=== PATIENT | female | born 1980 | race Caucasian/White ===

== ENCOUNTER 2017-09-13 05:23 | Inpatient (IN) ==
[2017-09-13] MEDS ORDERED: Famotidine 20 MG/2 ML VIAL IVP PRN (05:27)
[2017-09-13] MEDS ORDERED: Naloxone 0.4 MG/ML INJ IVP PRN (05:27)
[2017-09-13] MEDS ORDERED: Metoclopramide 10 MG/2 ML VIAL IVP PRN ×2 (05:27→10:59)
[2017-09-13] MEDS ORDERED: Ringers Solution, Lactated 1,000 ML IVC SCH (05:30)
[2017-09-13 05:58] LABS: Basophils % 0.4 %; Eosinophils # 0.1 K/mcL (0.0-0.6); Eosinophils % 1.2 %; Hematocrit 36.4 % (35.3-44.9); Hemoglobin 12.5 g/dL (11.5-15.4); Immature Granulocytes % 1.3 % (0-4); Lymphocytes # 1.7 K/mcL (0.6-4.6); Lymphocytes % 21.7 %; Mean Corpuscular HGB Conc 34.3 g/dL (31.6-35.5); Mean Corpuscular Hemoglobin 29.8 pg (28.0-33.3); Mean Corpuscular Volume 86.7 fL (83.0-100.0); Mean Platelet Volume 12.7 fL (9.4-12.4); Monocytes # 0.5 K/mcL (0.0-1.3); Monocytes % 6.1 %; Neutrophils # 5.3 K/mcL (1.6-8.9); Platelet Count 158 K/mcL (140-400); Segmented Neutrophils % 69.3 %
[2017-09-13 06:20] LABS: Alanine Aminotransferase 17 Units/L (7-52); Aspartate Amino Transferase 22 Units/L (13-39); BUN/Creatinine Ratio 17 (6-26); Blood Urea Nitrogen 14 mg/dL (6-20); Lactate Dehydrogenase 202 Units/L (140-271); Uric Acid 6.9 mg/dL (2.3-7.6); eGFR For African Americans > 60 (> 60); eGFR For Non-African Americans > 60 (> 60)
[2017-09-13 06:24] LABS: Amphetamine Screen,Urine Negative ng/mL (Cutoff=1000); Barbiturate Screen,Urine Negative ng/mL (Cutoff=200); Benzodiazepines Screen,Urine Negative ng/mL (Cutoff=200); Cannabinoid Screen,Urine Negative ng/mL (Cutoff = 50); Cocaine Screen,Urine Negative ng/mL (Cutoff= 300); Opiate Screen,Urine Negative ng/mL (Cutoff=300); Phencyclidine Screen,Urine Negative ng/mL (Cutoff=25)
--- NOTE | 2017-09-13 06:35 | OB/GYN History & Physical ---
Date of Encounter: 09/13/17 Time of Encounter: 05:45 Assessment and Plan (1) 39 weeks gestation of Current visit: Yes Status: Acute (2) Previous delivery affecting Current visit: Yes Status: Acute Repeat today (3) SROM (spontaneous rupture of membranes) Current visit: Yes Status: Acute Admit for section, repeat. Informed consent previously obtained. Patient denies any questions. (4) Advanced maternal age (AMA) in Current visit: Yes Status: Acute (5) History of HELLP syndrome, currently Current visit: Yes Status: Acute Labs ordered on admission History of Present Illness Chief complaint: "I think my water broke" HPI: Ms. Michaels is a 37 year old female -1-0-1 at 39 0/7 weeks presents with SROM that occurred at 0445 this morning. She denies any contractions or vaginal bleeding. She is a scheduled repeat for today. Her has been complicated by advanced maternal age, history of prior at 32 weeks for HELLP syndrome. A positive Rubella immune GBS negative Past Med Surg Social Fam HX - Past Medical History Source: patient Medical history: no medical history Psychiatric history: no psych history - Past Surgical History Surgical History: , cholecystectomy, other Additional surgical history: plate placed in left arm in 1991, removed in 2000 - Social History Smoking Status: Never smoker Smokeless Tobacco Status: No Alcohol use: none Drug use: none Current living situation: Home - Independent - Family History Mother Adopted: No Living Status: Hx Family Cardiac Disorders: Yes (STEMI, CABG x3) Hx Family Respiratory Disorders: No Hx Family Cancer: No Hx Family GI Disorders: No Hx Family Endocrine Disorder: No Hx Family Neuromuscular Disorders: No Hx Family Neurologic Disorders: No Hx Family HEENT Disorders: No Hx Family Autoimmune Disorders: No Obstetrical History - Pregnancies : 2 Term: 0 : 1 Ab's: 0 Livin - History/Complications History/Complications: HELLP syndrome and section with first at 32 weeks. Medications and Allergies Aspirin [Lo-Dose Aspirin EC] 81 mg PO DAILY 08/15/17 [History] Calcium Carbonate [Tums] 1,000 mg PO Q4HR 08/15/17 [History] Vit #108/Iron/FA [ One Tablet] 1 each PO DAILY 08/15/17 [ History] 3 Allergy/AdvReac Type Severity Reaction Status Date / Time No Known Allergies Allergy Verified 09/13/17 05:46 Review of System OB All systems PM: reviewed and no additional remarkable complaints except as stated - Constitutional Constitutional ROS IM: no fever(s), no headache(s) - Gastrointestinal Gastrointestinal: no cramping, no nausea, no vomiting - Menstruation Menstruation: amenorrhea Exam - Constitutional Constitutional: well developed, well nourished, no acute distress, average body habitus - HEENT HEENT: EOMI, Mucus Membranes Moist - Lungs Respiratory exam: CTAB - Cardiovascular Cardiovascular exam: RRR - Abdomen Abdomen: Present: bowel sounds normal, gravid, non tender - Comments Comments: Grossly ruptured with +nitrazine Results Result Diagrams: 09/13/17 05:45 09/13/17 05:45 Abnormal lab results RDW 16.0 % (11.5-14.5) H 09/13/17 05:45 MPV 12.7 fL (9.4-12.4) H 09/13/17 05:45 All other labs normal.
[2017-09-13] MEDS ORDERED: Lidocaine -MPF 1% 5 ML AMPUL ONE (07:25)
[2017-09-13] MEDS ORDERED: Bupivacaine/PF 0.75% in Dex 2 ML AMPUL INFILT ONE (07:25)
--- NOTE | 2017-09-13 07:42 | Anesthesia Evaluation PreOp ---
Date of Encounter: 09/13/17 Time of Encounter: 07:40 - Past History Planned Operation: Csection/spinal Cardiac History: Denies any Significant Hx Pulmonary History: Denies Any Significant HX UNCRATER History: Denies Any Significant HX Other Medical History: Other (hx HELLP syndrome previous , csection 32 weeks) Anesthesia History: Past Anesthesia (csection, Left Arm fracture ORIF with plate , removal of left arm plate, cholecystectomy) : Yes Alcohol Use: none Drug use: none Medications and Allergies Aspirin [Lo-Dose Aspirin EC] 81 mg PO DAILY 08/15/17 [History] Calcium Carbonate [Tums] 1,000 mg PO Q4HR 08/15/17 [History] Vit #108/Iron/FA [ One Tablet] 1 each PO DAILY 08/15/17 [ History] 3 Allergy/AdvReac Type Severity Reaction Status Date / Time No Known Allergies Allergy Verified 09/13/17 05:46 - Meds/Allergy Pre-op Review Medications Reviewed: Yes Allergies Reviewed: Yes Beta Blockers on Current Med List: No Anesthesia Results - Labs 09/13/17 05:45 09/13/17 05:45 Anesthesia Exam BP 138/89 P 62 R 14 T 97.5 Height: 5'11" Weight: 117.5KG NPO (# of Hours): 12 Pain Scale: 0 Pain Scale Used: Numeric (1 - 10) - HEENT Pupil (Motor): Pupils equal Mallampati: II Teeth: Normal Oral Opening: Greater than 3 - UNCRATER LOC: Oriented UNCRATER Motor: Normal RUE, Normal LUE, Normal RLE, Normal LLE, Normal Face UNCRATER Sensory: Normal: RUE, LUE, RLE, LLE, Face - Cardiac Rhythm: Regular Murmur: None JVD: No Carotid Bruit: No - Pulmonary Breath Sounds: bilateral Clear Respiratory Effort: Symmetrical Anesthesia Assess/Plan ASA Score: 2 Modified Ten Sleep Scale for Level of Consciousness: Cooperative, oriented, and tranquil Anesthetic Plan: Regional Autologous Blood: No Monitoring Plan: Standard Monitors Recovery Plan: PACU
[2017-09-13] MEDS ORDERED: Morphine Sulfate/PF 5mg/10mL Vial ONE (07:47)
[2017-09-13] MEDS ORDERED: Ondansetron 4 MG/2 ML VIAL ONE ×2 (08:11→11:01)
[2017-09-13] MEDS ORDERED: Dexamethasone 4 MG/ML VIAL ONE (08:11)
[2017-09-13] MEDS ORDERED: Ringers Solution, Lactated 1,000 ML ONE (08:16)
--- NOTE | 2017-09-13 08:25 | Anesthesia Procedures ---
Date of Encounter: 09/13/17 Time of Encounter: 08:02 Procedures: Anesthesia - Epidural/Spinal Patient ID/Chart reviewed: Yes Patient examined: Yes OB Eval: Gestational age: 8 OB Eval: : 2 OB Eval: Hx Para: 1 OB Eval: Contractions: Non-stressed pattern Consent Obtained: Yes Supplemental Oxygen: None/Room Air Site Prep: Aseptic Technique, Sterile prep and drape, Povidone-Iodine 1% Patient position: upright Local Anesthetic: Lidocaine 1% Amount of Local Anesthetic used: 3 Interspace Used: L3-L4 Blood: No CSF: Yes Paresthesia: No Spinal Needle Gauge: 25 Spinal Dose: Bupivicaine 0.75% 2.0ml morphine 250mcg Procedure: Intrathecal dose administered in upright position 2nd pass without any immediate noted complications. VSS. Supine for csection procedure. Vitals + FHT's: See anesthesia OR record
--- NOTE | 2017-09-13 09:11 | OB/GYN Procedure Note ---
Section - Date of procedure: 09/13/17 Preop diagnosis: desires repeat , breech, other (SROM) Post-op diagnosis: same Procedure: section, repeat low transverse Surgeon: Norah Mallory Blood Loss: 200 Was there an instructional support assistant present: No Metal Framer: Quentin Duckworth Anesthesia Type: Spinal section complications: none Disposition: PACU Specimens: Placenta - (s) Infant A Delivery Date: 09/13/17 Delivery Time: 08:29 Presentation: breech Gender: Male Viability: Viable Pounds: 7 Ounces: 4 Gram Weight: 3.28 kg at 1 minute: 9 at 5 minutes: 9 Shoulder Dystocia: not encountered Specimens collected: cord blood Placenta: spontaneous Cord: 3 umbilical vessels - Narrative Narrative: Patient was taken to the operative suite and placed under spinal anesthetic. She was then prepped and draped in normal sterile fashion in the dorsal supine position. Timeout was then performed. Antibiotics were given at room time. SCDs are on and active. Pfannenstiel skin incision is then made and carried through to underlying layer of fascia with the Bovie. The fascia was then incised in the midline and incision extended laterally with the [place] scissors. The fascia was tented up and dissected off the rectus muscles sharply. The rectus muscles were in the midline and the peritoneum was tented up and entered sharply with the Metzenbaum scissors. The peritoneal incision was then extended bluntly. The bladder blade was then inserted and the vesicouterine peritoneum was entered sharply. Bladder flap was created digitally. A low transverse uterine incision was then made. The infant breech was brought to the incision and the infant was delivered using breech maneuvers and fundal pressure. There was no nuchal cord. Cord was clamped and cut. Infant was handed to waiting nursery staff. Placenta delivered spontaneously complete and intact with a three-vessel cord. The uterus was cleared of all clots and debris using moist laparotomy sponge. The uterine incision was then closed using 0 Vicryl in a running locked fashion. A second layer of the same suture was used to obtain excellent hemostasis. The abdomen was then cleared of all clots and debris using copious irrigation. The fascial incision was then closed using 0 Vicryl in a running fashion. The subcuticular tissue was reapproximated using 0 chromic in a running fashion. The skin was closed using 4-0 Vicryl in a subcuticular fashion. Steri-Strips and sterile dressing are then placed. Mother and taken to recovery in stable condition.
[2017-09-13] MEDS ORDERED: Oxytocin 20 units/ LR 1000 mL 20 UNIT/1,000 ML BAG IVC ONE ×2 (10:48→14:51)
[2017-09-13] MEDS ORDERED: Sennosides 8.6 MG TABLET PO PRN (10:59)
[2017-09-13] MEDS ORDERED: Ibuprofen 600 MG TABLET PO PRN (10:59)
[2017-09-13] MEDS ORDERED: *HR* OxyCODONE/APAP 5/325 TABLET PO PRN (10:59)
[2017-09-13] MEDS ORDERED: Acetaminophen 325 MG TABLET PO PRN (10:59)
[2017-09-13] MEDS ORDERED: Simethicone 80 MG TAB.CHEW PO PRN (10:59)
[2017-09-13] MEDS ORDERED: Ondansetron 4 MG/2 ML VIAL IVP PRN (10:59)
[2017-09-13] MEDS ORDERED: *HR* OxyCODONE Immed Rel 5 MG TABLET PO PRN (10:59)
[2017-09-13] MEDS: Oxytocin 20 units/ LR 1000 mL 20 UNIT/1,000 ML BAG IVC SCH (11:23)
--- NOTE | 2017-09-13 13:11 | Anesthesia Evaluation Post Op ---
Date of Encounter: 09/13/17 Time of Encounter: 10:30 - Vital Signs Vital Signs: Vital Signs Respiratory Rate 16 09/13/17 11:30 Temperature 97.6 F 09/13/17 12:30 Pulse Rate 75 09/13/17 12:30 Respiratory Rate 14 09/13/17 12:30 Blood Pressure 151/85 09/13/17 12:30 - Lungs Lungs: Clear Ascult./Percussion - Airway Airway: Non-obstructed - Cardiovascular Regular Rate - Mental Status Mental Status: Alert & Oriented, Answers Appropriately - Pain Pain Scale: 0 Pain Scale used: Numeric (1 - 10) - Nausea Vomiting Nausea Vomiting: Responds to treatment with IV Meds - Hydration Hydration: NPO, Boone catheter - Discharge PostOp Status: Transfer Patient to floor
[2017-09-14] MEDS: Oxytocin 20 units/ LR 1000 mL 20 UNIT/1,000 ML BAG IVC SCH (02:41)
[2017-09-14 04:32] LABS: Basophils % 0.2 %; Eosinophils % 0.2 %; Hematocrit 35.3 % (35.3-44.9); Hemoglobin 11.9 g/dL (11.5-15.4); Immature Granulocytes % 0.7 % (0-4); Lymphocytes # 1.3 K/mcL (0.6-4.6); Lymphocytes % 13.7 %; Mean Corpuscular HGB Conc 33.7 g/dL (31.6-35.5); Mean Corpuscular Hemoglobin 29.6 pg (28.0-33.3); Mean Corpuscular Volume 87.8 fL (83.0-100.0); Mean Platelet Volume 12.2 fL (9.4-12.4); Monocytes # 0.6 K/mcL (0.0-1.3); Monocytes % 6.1 %; Neutrophils # 7.5 K/mcL (1.6-8.9); Platelet Count 149 K/mcL (140-400); Red Blood Count 4.02 M/mcL (3.82-4.97); Red Cell Distribution Width 15.8 % (11.5-14.5); Segmented Neutrophils % 79.1 %
[2017-09-14 04:45] LABS: BUN/Creatinine Ratio 11 (6-26); Blood Urea Nitrogen 9 mg/dL (6-20)
[2017-09-14 04:46] LABS: Alanine Aminotransferase 15 Units/L (7-52); Aspartate Amino Transferase 24 Units/L (13-39); Lactate Dehydrogenase 258 Units/L (140-271); Uric Acid 6.1 mg/dL (2.3-7.6); eGFR For African Americans > 60 (> 60); eGFR For Non-African Americans > 60 (> 60)
[2017-09-14] MEDS: Prenatal Vit/FA 1 EACH TABLET PO SCH (09:27)
--- NOTE | 2017-09-14 09:36 | OB/GYN Progress Note ---
Date of Encounter: 09/14/17 Time of Encounter: 09:35 - Assessment and Plan (1) Status post repeat low transverse section Current Visit: Yes Status: Acute Continue routine postop care encourage ambulation anticipate discharge home tomorrow (2) Gestational hypertension Current Visit: No Status: Acute lab work stable Qualifiers: Trimester: third trimester Qualified Code(s): O13.3 - Gestational [ -induced] hypertension without significant proteinuria, third trimester Subjective - Subjective Principal diagnosis: s/p repeat c/s Interval history: Patient in bed, denies any pain at this time. Patient denies headache, visual disturbances or epigastric pain. Patient reports: appetite normal, voiding normally, pain well controlled, ambulating normally : doing well, bottle feeding Objective - Vital Signs Latest vital signs: Vital Signs Temp Pulse Pulse Resp BP Pulse Ox 09/14/17 08:02 98.5 F 79 16 153/83 96 09/14/17 04:08 97.7 F 67 16 129/81 99 09/14/17 00:05 98.2 F 64 16 136/79 97 09/13/17 20:15 98.5 F 72 18 143/83 98 09/13/17 18:20 97.5 F L 62 62 14 158/91 98 09/13/17 17:16 151/96 09/13/17 16:40 97.9 F 65 16 136/85 97 09/13/17 14:30 98.2 F 66 66 14 156/92 09/13/17 13:30 98.2 F 65 65 14 142/82 09/13/17 12:30 97.6 F 75 75 14 151/85 09/13/17 12:00 97.6 F 63 63 14 143/90 09/13/17 11:30 16 Intake and Output 09/13/17 09/14/17 09/14/17 23:59 07:59 15:59 Intake Total 1300 / 1300 0 / 0 Output Total 1850 / 1850 1150 / 1150 Balance -550 / -550 -1150 / -1150 Intake: IV Fluids 1000 / 1000 Pitocin 20 unit In 1,000 ml @ 1000 / 1000 125 mls/hr IVC .Q8H JEFF Rx#: [id number] Oral 300 / 300 0 / 0 Output: Catheter 1850 / 1850 1150 / 1150 Other: Weight 114.759 kg Patient Weight 06/29/18 23:59 Weight 114.759 kg - Exam Lungs: bilateral: normal Chest: Normal S1, Normal S2 Extremities: Present: normal Abdomen: Present: normal appearance, soft Incision: Present: normal, dry, intact, dressed (medipore dressing) Uterus: Present: normal, firm Fundal Height: 2 (U/2) - Labs Labs: Laboratory Results - last 24 hr 09/14/17 09/14/17 04:16 04:16 WBC 9.5 RBC 4.02 Hgb 11.9 Hct 35.3 MCV 87.8 MCH 29.6 MCHC 33.7 RDW 15.8 H Plt Count 149 MPV 12.2 Immature Gran % 0.7 Seg Neutrophils % 79.1 Lymphocytes % 13.7 Monocytes % 6.1 Eosinophils % 0.2 Basophils % 0.2 Neutrophils # 7.5 Lymphocytes # 1.3 Monocytes # 0.6 Eosinophils # 0.0 Basophils # 0.0 BUN 9 Creatinine 0.81 Est GFR ( Amer) > 60 Est GFR (Non-Af Amer) > 60 BUN/Creatinine Ratio 11 Uric Acid 6.1 AST 24 ALT 15 Lactate Dehydrogenase 258
[2017-09-15] MEDS: Prenatal Vit/FA 1 EACH TABLET PO SCH (08:34)
--- NOTE | 2017-09-15 09:09 | Discharge Summary ---
Date of Encounter: 09/15/17 Time of Encounter: 08:58 - Discharge Diagnosis (1) Breast feeding status of mother Priority: Secondary Status: Acute Comments: Community resources provided (2) Status post repeat low transverse section Priority: Primary Status: Acute Comments: Pain well controlled with by mouth pain meds Ambulating independently Tolerating regular diet Voiding independently Passing flatus, but no BM yet Lochia light Discharge home today (3) hypertension Priority: Secondary Status: Acute Comments: Give 1 dose of labetalol 100 mg by mouth and then recheck blood pressure in 1 hour per consult with Dr. Jackson - Discharge Medications Prescriptions: OxyCODONE/APAP 5/325 [Percocet 5/325 MG] 1 each PO Q4HR PRN 5 Days #30 tablet PRN Reason: Moderate pain 4-6 Ibuprofen [Motrin] 600 mg PO Q6HR PRN #30 tablet PRN Reason: Cramping Docusate [Colace] 100 mg PO BID #30 capsule Home Medications: Calcium Carbonate [Tums] 1,000 mg PO Q4HR 08/15/17 [History] Vit #108/Iron/FA [ One Tablet] 1 each PO DAILY 08/15/17 [ History] Acetaminophen [Tylenol] 325 mg PO Q6HR PRN tablet 09/15/17 [Rx] Docusate [Colace] 100 mg PO BID #30 capsule 09/15/17 [Rx] Ibuprofen [Motrin] 600 mg PO Q6HR PRN #30 tablet 09/15/17 [Rx] OxyCODONE/APAP 5/325 [Percocet 5/325 MG] 1 each PO Q4HR PRN 5 Days #30 tablet [Rx] Simethicone [Gas-X] 80 mg PO TID PRN tab.chew 09/15/17 [Rx] Allergies/Adverse Reactions: 3 Allergy/AdvReac Type Severity Reaction Status Date / Time No Known Allergies Allergy Verified 09/13/17 05:46 Data Procedures and tests throughout hospitalization: Laboratory Tests 09/13/17 09/13/17 09/13/17 05:45 05:45 05:45 WBC 7.7 RBC 4.20 Hgb 12.5 Hct 36.4 MCV 86.7 MCH 29.8 MCHC 34.3 RDW 16.0 H Plt Count 158 MPV 12.7 H Immature Gran % 1.3 Seg Neutrophils % 69.3 Lymphocytes % 21.7 Monocytes % 6.1 Eosinophils % 1.2 Basophils % 0.4 Neutrophils # 5.3 Lymphocytes # 1.7 Monocytes # 0.5 Eosinophils # 0.1 Basophils # 0.0 BUN 14 Creatinine 0.83 Est GFR ( Amer) > 60 Est GFR (Non-Af Amer) > 60 BUN/Creatinine Ratio 17 Uric Acid 6.9 AST 22 ALT 17 Lactate Dehydrogenase 202 Urine Opiates Screen Negative Ur Barbiturates Screen Negative Ur Phencyclidine Scrn Negative Ur Amphetamines Screen Negative U Benzodiazepines Scrn Negative Urine Cocaine Screen Negative U Marijuana (THC) Screen Negative Ur Drug Screen Interp See Below 09/14/17 09/14/17 04:16 04:16 WBC 9.5 RBC 4.02 Hgb 11.9 Hct 35.3 MCV 87.8 MCH 29.6 MCHC 33.7 RDW 15.8 H Plt Count 149 MPV 12.2 Immature Gran % 0.7 Seg Neutrophils % 79.1 Lymphocytes % 13.7 Monocytes % 6.1 Eosinophils % 0.2 Basophils % 0.2 Neutrophils # 7.5 Lymphocytes # 1.3 Monocytes # 0.6 Eosinophils # 0.0 Basophils # 0.0 BUN 9 Creatinine 0.81 Est GFR ( Amer) > 60 Est GFR (Non-Af Amer) > 60 BUN/Creatinine Ratio 11 Uric Acid 6.1 AST 24 ALT 15 Lactate Dehydrogenase 258 Urine Opiates Screen Ur Barbiturates Screen Ur Phencyclidine Scrn Ur Amphetamines Screen U Benzodiazepines Scrn Urine Cocaine Screen U Marijuana (THC) Screen Ur Drug Screen Interp Date of admission: 09/13/17 05:23 Primary care physician: Vita Harmon CNP Discharging clinician: Josiane Matos Anticipated date of discharge: 09/15/17 - Patient Status Disposition: Home, Self-Care Condition: Good Functional capacity at discharge: independent ambulation Overall status at discharge: patient is progressing back to baseline - Discharge Instructions Follow Up With: Vita Harmon CNP [Primary Care Provider] - Norah Campos DO [Partnered Physician] - - Diet and Activity Activity: increase activity as tolerated Diet: regular diet Hospital Course Reason for admission: section, IUP at term Delivery: section Episiotomy: none Laceration: none Other procedures: none complications: none Discharge diagnosis: IUP at term delivered [place] baby: male Time Attestation: Total time spent providing and/or coordinating discharge services: Time Spent: Less than 30 minutes - VTE Documentation of Mechanical Device: Intermittent pneumatic compression device Exam - Constitutional Vitals: Temp Pulse Resp BP Pulse Ox 98 F 94 16 147/99 97 09/15/17 08:01 09/15/17 08:01 09/15/17 08:01 09/15/17 08:01 09/15/17 08:01 General appearance IM: A&O X 3 - Respiratory Respiratory exam: Present: CTAB - Cardiovascular Cardiovascular exam IM: Present: RRR, +S1, +S2 - GI/Abdominal GI/Abdominal exam IM: normal bowel sounds, no peritoneal signs Incision: normal, dry, dressed - Rectal Rectal exam: deferred - Uterine Tone: Firm Uterus Position: At Umbilicus, Midline - Extremities Exam Extremities exam IM: Present: pedal edema, radial pulses palpable and symmetrical - Neurological Exam Neurological exam: alert, CN II-XII intact, normal gait, oriented X3, reflexes normal, no focal deficits, strengths equal and symetr throughout - Psychiatric Additional comments: Patient denies history of anxiety and depression. Signs and symptoms of depression discussed and patient verbalizes understanding of when to seek help. - Other Additional findings: Breasts: Soft, nontender; Nipples intact without erythema. Deep latch observed with breast-feeding.
[2017-09-15 10:33] VITALS: BP 134/85
== END 2017-09-15 12:20 | disposition home or self-care (01) | DRG 766 ==
LOC: 1NENULAB 05:23 → 1NENUOBS 11:39
PROVIDERS: ADMIT Obstetrics & Gynecology; ATTEND Obstetrics & Gynecology